=== PATIENT | female | born 2000 | race Caucasian/White ===

== ENCOUNTER 2022-06-09 16:30 | Emergency (ER) | payer SELFPAY ==
[~2022-06-09] VITALS: Ht 167.6 cm; Wt 75.7 kg
[2022-06-09 17:19] VITALS: BP 139/85
--- NOTE | 2022-06-09 19:08 | NUR ---
Patient discharged with v/s stable. Written and verbal after care instructions given and explained. Patient verbalized understanding. Ambulatory with steady gait. All questions addressed prior to discharge. Advised to follow up with PMD.
--- NOTE | 2022-06-09 19:08 | NUR ---
ASSUMED CARE FOR DC INSTRUCTIONS.
[2022-06-09 19:09] VITALS: BP 129/77
== END 2022-06-09 19:08 | disposition home or self-care (01) ==
LOC: MED 16:30
DX: S16.1XXA Strain of muscle, fascia and tendon at neck level, initial encounter (principal); F07.81 Postconcussional syndrome; F41.9 Anxiety disorder, unspecified; X58.XXXA Exposure to other specified factors, initial encounter; Y93.89 Activity, other specified; Y92.89 Other specified places as the place of occurrence of the external cause; Y99.8 Other external cause status
CPT/HCPCS: 99281